=== PATIENT | male | born 1960 | race African-American/Black ===

== ENCOUNTER 2019-05-11 23:14 | Emergency (ER) | payer OTHER ==
[~2019-05-11] VITALS: Ht 182.9 cm; Wt 108.9 kg
[2019-05-11] MEDS: ONDANSETRON 4 MG TAB.RAPDIS SL ONE (22:35)
[2019-05-11] MEDS ORDERED: DEXAMETHASONE SOD PHOSPHATE 10 MG/ML VIAL ONE (23:30)
[2019-05-11] MEDS ORDERED: ONDANSETRON 4 MG TAB.RAPDIS ONE (23:30)
[2019-05-11] MEDS ORDERED: DEXAMETHASONE SOD PHOSPHATE 4 MG/ML VIAL IM ONE (23:30)
[2019-05-11] MEDS ORDERED: ALBUTEROL FS 2.5 MG/0.5 ML VIAL.NEB ONE (23:32)
[2019-05-11] MEDS ORDERED: predniSONE 20 MG TABLET ONE (23:32)
[2019-05-11] MEDS: predniSONE 50 MG TABLET PO ONE (23:35)
[2019-05-11] MEDS: ALBUTEROL FS 2.5 MG/0.5 ML VIAL.NEB NEB ONE (23:39)
--- NOTE | 2019-05-11 23:39 | NUR ---
PT REC'D MEDICATION ORDERED. PT REC'D A BREATHING TX.
[2019-05-12 00:09] VITALS: BP 127/96
--- NOTE | 2019-05-12 00:10 | NUR ---
Patient discharged to home in stable condition. Written and verbal after care instructions given. Patient verbalizes understanding of instruction AND RX. PT AMBULATED OUT WITH A STEADY GAIT. VSS. RESP ARE EVEN AND UNLABORED. NAD NOTED.
== END 2019-05-12 00:11 | disposition home or self-care (01) ==
LOC: ER 23:16
DX: J45.909 Unspecified asthma, uncomplicated (principal)
CPT/HCPCS: 94640; 99283; J7512; Q0162; J1100

== ENCOUNTER 2020-01-05 07:27 | Inpatient (IN) | payer OTHER ==
[~2020-01-05] VITALS: Ht 182.9 cm; Wt 108.9 kg
--- NOTE | 2020-01-05 07:35 | NUR ---
RN NOTE THE PATIENT IS RECEIVED ON A GURNEY. THE PATIENT IS A DIRECT ADMIT FROM [place]. PATIENT IS ALERT AND ORIENTED X4. DENIES SOB. IN ROOM AIR. RESPIRATION REGULAR AND UNLABORED. DENIES PAIN. THE PATIENT IS IN NO APPARENT DISTRESS. LFA G 20 PATENT AND SALINE LOCKED. ORIENTATION TO THE ROOM/UNIT IS PROVIDED AND THE PATIENT VERBALIZED UNDERSTANDING. BED LOW AND LOCKED. SIDE RAILS UP X2. CALL LIGHT WITHIN REACH. WILL CONTINUE TO MONITOR.
--- NOTE | 2020-01-05 08:10 | NUR ---
RN NOTE GENERAL MERCHANDISE SALESPERSON FLORECITA IS MADE AWARE OF PATIENT`S ARRIVAL AND ASKED FOR ADMITTING ORDER. NO ORDERS AT THIS TIME. STILL WAITING. WILL CONTINUE TO FOLLOW UP.
[2020-01-05 08:13] VITALS: BP 137/82
--- NOTE | 2020-01-05 08:53 | NUR ---
MS/RN NOTE THE PATIENT REFUSES SLEEVES FOR DVT PUMP TO BE APPLIED DESPITE EXPLAINING RISKS AND BENEFITS. WILL OFFER AGAIN.
[2020-01-05] MEDS ORDERED: ACETAMINOPHEN 325 MG TABLET PO PRN ×2 (09:00)
[2020-01-05] MEDS ORDERED: ZOLPIDEM TARTRATE 5 MG TABLET PO PRN (09:00)
[2020-01-05] MEDS ORDERED: IPRATROPIUM NEB FS 0.5 MG/2.5 ML AMPUL.NEB NEB PRN (09:00)
[2020-01-05] MEDS ORDERED: ALBUTEROL FS 2.5 MG/0.5 ML VIAL.NEB NEB PRN (09:00)
[2020-01-05] MEDS ORDERED: ONDANSETRON HCL/PF 4 MG/2 ML VIAL IVP PRN ×2 (09:00)
[2020-01-05] MEDS ORDERED: Z GUARD REMEDY 2 OZ OINT TP PRN (09:00)
[2020-01-05] MEDS ORDERED: MAG HYDROX/AL HYDROX/SIMETH 30 ML UDC PO PRN (09:00)
[2020-01-05] MEDS ORDERED: MAGNESIUM HYDROXIDE 30 ML UDC PO PRN (09:00)
[2020-01-05] MEDS ORDERED: HYDROCODONE/APAP 5/325MG 1 EACH TABLET PO PRN (09:00)
[2020-01-05] MEDS ORDERED: methylPREDNISolone SOD SUCC 40 MG/ML VIAL IV SCH (09:00)
[2020-01-05] MEDS: methylPREDNISolone SOD SUCC 125 MG/2ML VIAL IV SCH ×2 (10:29→16:38)
[2020-01-05] MEDS: IPRATROPIUM NEB FS 0.5 MG/2.5 ML AMPUL.NEB NEB SCH ×4 (11:30→23:28)
[2020-01-05] MEDS: ALBUTEROL FS 2.5 MG/0.5 ML VIAL.NEB NEB SCH ×4 (11:30→23:28)
[2020-01-05] MEDS ORDERED: ALBUTEROL FS 2.5 MG/0.5 ML VIAL.NEB NEB SCH (13:30)
[2020-01-05 16:15] VITALS: BP 141/75
--- NOTE | 2020-01-05 19:00 | NUR ---
MS/RN NOTE THE PATIENT IS ALERT AND ORIENTED X4. DENIES PAIN. PATIENT IS IN ROOM AIR AND OXYGEN SATURATION IS AT 97%. DENIES SOB. RESPIRATION REGULAR AND UNLABORED. THE PATIENT IN NO APPARENT DISTRESS. LFA G 20 PATENT AND SALINE LOCKED. BED LOW AND LOCKED. SIDE RAILS UP X20 CALL LIGHT WITHIN REACH. WILL ENDORSE TO JAIL KEEPER.
[2020-01-05] MEDS ORDERED: ALBU18HF2 IH (19:16)
[2020-01-05] MEDS ORDERED: PRED2.5T PO (19:16)
--- NOTE | 2020-01-05 19:32 | NUR ---
MS RN RECEIVE PT IN BED A/O X 3, STABLE CONDITION AND NOT IN DISTRESS, SAFETY MEASURES IN PLACE, WILL CONT TO MONITOR
[2020-01-05 20:00] VITALS: BP 141/78
--- NOTE | 2020-01-05 21:30 | NUR ---
PAGED AND REPORTED RECENT LACTIC ACID TO ACCOUNT EXECUTIVE SALES REPRESENTATIVE RIKI NO NEW ORDERS
[2020-01-05 22:28] LABS: BILIRUBIN,DIRECT 0.1 mg/dL (0.0-0.2); BILIRUBIN,TOTAL 0.4 mg/dL (0.2-1.0); CREATININE 1.2 mg/dL (0.6-1.3)
[2020-01-06] MEDS: IPRATROPIUM NEB FS 0.5 MG/2.5 ML AMPUL.NEB NEB SCH ×4 (03:18→15:16)
[2020-01-06] MEDS: ALBUTEROL FS 2.5 MG/0.5 ML VIAL.NEB NEB SCH ×4 (03:18→15:16)
--- NOTE | 2020-01-06 05:22 | NUR ---
MS RN PT SLEPT WELL, MONITORED FOR PAIN, KEPT CLEAN, DRY AND COMFORT AT ALL TIMES. ALL NEEDS ATTENDED AND ANTICIPATED, NURSING CARE RENDERED, SAFETY MEASURES AT ALL TIMES. WILL ENDORSE TO NEXT SHIFT
--- NOTE | 2020-01-06 05:24 | NUR ---
CALLED LAB TO FF UP IF PT HAS THE SPECIMEN MRSA SWAB PER CRIS HE HAS THE SPECIMEN HE JUST NEED ORDERS
[2020-01-06 07:25] LABS: BASOPHILS % (AUTO) 0.4 % (0.0-2.0); EOSINOPHILS % (AUTO) 1.9 % (0.0-6.0); HEMATOCRIT 44 % (39-51); LYMPHOCYTES # (AUTO) 2.3 /CMM (0.8-4.8); LYMPHOCYTES % (AUTO) 28.9 % (20.0-44.0); MEAN CORPUSCULAR HGB CONC 32 g/dl (31.0-36.0); MEAN CORPUSCULAR VOLUME 89 fL (80-96); MONOCYTES # (AUTO) 0.6 /CMM (0.1-1.30); MONOCYTES % (AUTO) 7.9 % (2.0-12.0); NEUTROPHILS # (AUTO) 4.9 /CMM (1.8-8.9); NEUTROPHILS % (AUTO) 60.9 % (43.0-81.0); PLATELET COUNT (AUTO) 301 /CMM (150-450); RED BLOOD CELL COUNT(AUTO) 4.88 MIL/uL (4.5-6.0)
--- NOTE | 2020-01-06 07:40 | NUR ---
MS RN RECEIVED ON BED, AWAKE,ALERT,ORIENTED X4,NOT IN ANY FORM OF DISTRESS, RESPIRATIONS EVEN AND UNLABORED,NO SOB NOTED, WILL MONITOR PATIENT'S CONDITION.
[2020-01-06 07:42] LABS: ALBUMIN 3.9 g/dL (3.4-5.0); BILIRUBIN,TOTAL 0.4 mg/dL (0.2-1.0); CALCIUM, SERUM 9.1 mg/dL (8.5-10.1); CREATININE 1.1 mg/dL (0.6-1.3); PHOSPHORUS 4.2 mg/dL (2.5-4.9); TOTAL PROTEIN, SERUM 7.5 g/dL (6.4-8.2)
[2020-01-06 08:15] VITALS: BP 132/81
--- NOTE | 2020-01-06 09:00 | NUR ---
MS JENNINGS BREAKFAST SERVED,DUE MEDS GIVEN,TOLERATED WELL.
[2020-01-06] MEDS: methylPREDNISolone SOD SUCC 125 MG/2ML VIAL IV SCH (09:22)
[2020-01-06] MEDS ORDERED: METH4TAB17 PO (11:14)
[2020-01-06] MEDS ORDERED: PSEU30CA2 PO (11:17)
[2020-01-06] MEDS ORDERED: methylPREDNISolone SOD SUCC 40 MG/ML VIAL IV SCH (11:21)
--- NOTE | 2020-01-06 11:30 | NUR ---
MS RN WAS SEEN BY DAIN BERNABE W/ ORDER TO GO HOME TODAY.
--- NOTE | 2020-01-06 15:30 | NUR ---
ms wood patternmaker instructions given and understood, patient went home w/ prescription.
== END 2020-01-06 15:51 | disposition home or self-care (01) | DRG 141 ==
LOC: MED 07:27
PROVIDERS: ADMIT Nurse Practitioner Acute Care; ATTEND Nurse Practitioner Acute Care
DX: J45.901 Unspecified asthma with (acute) exacerbation (principal); E87.2 Acidosis; Z79.52 Long term (current) use of systemic steroids; Z98.890 Other specified postprocedural states; R09.02 Hypoxemia
CPT/HCPCS: 36415; 71045-TC; 80053-TC; 80061-TC; 82247-TC; 82248-TC; 82565-TC; 83605-TC; 83735-TC; 84100-TC; 85025-TC; 87081-TC; 94799-TC; G0378; J2405; J2930

== ENCOUNTER 2020-01-18 17:01 | Emergency (ER) | payer OTHER ==
[~2020-01-18] VITALS: Ht 182.9 cm; Wt 113.4 kg
[~2020-01-18 17:01] MED LIST: ALBU18HF2 IH; METH4TAB17 PO; PSEU30CA2 PO
[2020-01-18] MEDS: ALBUTEROL SULFATE INH 18 GM HFA.AER.AD IH ONE (17:30)
--- NOTE | 2020-01-18 17:30 | NUR ---
BIBS FROM WORK TO ER BED 6. AAOX4. NOT IN RESP DISTRESS, BREATHING EVEN AND UNLABORED.AMBULATORY. CAME IN FOR ASTHMA EXCAREBATION. PER PT, HE HAS BEEN FEELING SOB FOR THE PAST FEW DAYS AND RAN OUT OF HIS INHALER. TOÑA MCKEON WAS AT THE BED SIDE FOR EVAL. ORDERS RECEIVED NOPTED AND CARRIED OUT.
--- NOTE | 2020-01-18 17:33 | NUR ---
PHARMACY UNABLE TO DISPENSE ALBUTEROL INHALER D/T PT IS NOT A COVID CASE. TOÑA MCKEON WAS MADE AWARE
[2020-01-18] MEDS ORDERED: predniSONE 20 MG TABLET ONE (17:34)
[2020-01-18] MEDS: predniSONE 20 MG TABLET PO ONE (17:37)
[2020-01-18] MEDS: IPRATROPIUM NEB FS 0.5 MG/2.5 ML AMPUL.NEB NEB ONE (17:38)
[2020-01-18] MEDS: ALBUTEROL FS 2.5 MG/3 ML VIAL.NEB CONTNEB ONE (17:38)
[2020-01-18] MEDS ORDERED: IPRATROPIUM NEB FS 0.5 MG/2.5 ML AMPUL.NEB ONE (17:50)
[2020-01-18] MEDS ORDERED: ALBUTEROL FS 2.5 MG/3 ML VIAL.NEB ONE (17:50)
--- NOTE | 2020-01-18 17:50 | NUR ---
RT PATIENT PLACED ON CONT TX. WILL ENDORSE TO MATCH MARKER TO REMOVE TX WHEN DONE AND CHART POST INTERVENTIONS.
--- NOTE | 2020-01-18 19:41 | NUR ---
Patient discharged to home in stable condition. Written and verbal after care instructions given. Patient verbalizes understanding of instruction. Pt ambulatory with a steady gait
[2020-01-18 19:42] VITALS: BP 153/75
== END 2020-01-18 19:42 | disposition home or self-care (01) ==
LOC: ER 17:04
DX: J45.901 Unspecified asthma with (acute) exacerbation (principal); Z76.0 Encounter for issue of repeat prescription; Z60.2 Problems related to living alone; Z79.899 Other long term (current) drug therapy
CPT/HCPCS: 94644; 99285; J7512

== ENCOUNTER 2020-01-22 12:40 | Emergency (ER) | payer OTHER ==
[~2020-01-22] VITALS: Ht 182.9 cm; Wt 108.9 kg
[~2020-01-22 12:40] MED LIST changes: -METH4TAB17 PO
--- NOTE | 2020-01-22 12:48 | NUR ---
JESSENIA FROM HOME TO ER BED 12. AAOX4. NOT IN RESP DISTRESS, BREATHING EVEN AND UNLABORED. AMBULATORY. CAME IN FOR GEN WEAKNESS FOR THE PAST 2 DAYS. PER PT, HE WAS ON PREDNISONE TX, COMPLETED THE THE WEAKNESS STARTED. PT REPORTS, NAUSEA. NO NEURO DEFICIT. MD WAS AT THE BEDSIDE FOR EVAL. AWAITING FOR ORDERS
[2020-01-22] MEDS ORDERED: methylPREDNISolone SOD SUCC 125 MG/2ML VIAL ONE (12:52)
[2020-01-22] MEDS ORDERED: ONDANSETRON HCL/PF 4 MG/2 ML VIAL ONE ×2 (12:52→13:43)
[2020-01-22] MEDS ORDERED: methylPREDNISolone SOD SUCC 125 MG/2ML VIAL IV ONE (13:00)
[2020-01-22] MEDS ORDERED: IV NS 0.9% 500 ML BAG IV ONE (13:00)
[2020-01-22] MEDS ORDERED: ONDANSETRON HCL/PF 4 MG/2 ML VIAL IV ONE ×2 (13:00→14:00)
--- NOTE | 2020-01-22 13:09 | NUR ---
SUMMER ANALYST AND EMT AT BEDSIDE FOR BLOOD DRAWN AND EKG
[2020-01-22 13:20] LABS: BASOPHILS % (AUTO) 0.5 % (0.0-2.0); EOSINOPHILS % (AUTO) 0.2 % (0.0-6.0); HEMATOCRIT 46 % (39-51); HEMOGLOBIN 15.3 g/dL (13.5-17.5); LYMPHOCYTES # (AUTO) 1.3 /CMM (0.8-4.8); LYMPHOCYTES % (AUTO) 15.6 % (20.0-44.0); MEAN CORPUSCULAR HGB CONC 33 g/dl (31.0-36.0); MEAN CORPUSCULAR VOLUME 89 fL (80-96); MONOCYTES # (AUTO) 0.7 /CMM (0.1-1.30); MONOCYTES % (AUTO) 8.4 % (2.0-12.0); NEUTROPHILS # (AUTO) 6.3 /CMM (1.8-8.9); NEUTROPHILS % (AUTO) 75.3 % (43.0-81.0); PLATELET COUNT (AUTO) 331 /CMM (150-450); WHITE BLOOD COUNT (AUTO) 8.4 K/uL (4.3-11.0)
[2020-01-22 13:32] LABS: ALANINE AMINOTRANSFERASE 48 U/L (12-78); ALBUMIN 4.2 g/dL (3.4-5.0); ALKALINE PHOSPHATASE 84 U/L (46-116); ASPARTATE AMINOTRANSFERASE 31 U/L (15-37); BILIRUBIN,DIRECT 0.1 mg/dL (0.0-0.2); BILIRUBIN,TOTAL 0.7 mg/dL (0.2-1.0); CALCIUM, SERUM 9.2 mg/dL (8.5-10.1); CARBON DIOXIDE 30 mmol/L (21-32); CHLORIDE 99 mmol/L (98-107); CREATININE 1.2 mg/dL (0.6-1.3); GLUCOSE 101 mg/dL (74-106); LIPASE 692 U/L (73-393); POTASSIUM 3.9 mmol/L (3.5-5.1); SODIUM SERUM 136 mmol/L (136-145); TOTAL PROTEIN, SERUM 8.2 g/dL (6.4-8.2); UREA NITROGEN, BLOOD 14 mg/dL (7-18)
--- NOTE | 2020-01-22 14:15 | NUR ---
Patient discharged to home in stable condition. Written and verbal after care instructions given. Patient verbalizes understanding of instruction.IV removed. Catheter intact and site benign. Pressure and 4x4 applied to site. No bleeding noted. Pt ambulatory with a steady gait
[2020-01-22 14:16] VITALS: BP 153/89
== END 2020-01-22 15:20 | disposition home or self-care (01) ==
LOC: ER 12:43
DX: R11.2 Nausea with vomiting, unspecified (principal); J45.909 Unspecified asthma, uncomplicated; Z60.2 Problems related to living alone; Z79.899 Other long term (current) drug therapy
CPT/HCPCS: 36415; 80048; 80076; 83690; 84484; 85025; 93005; 96374; 96375; 96376; 99284; J2405 ×2; J2930; J7040; J7030

== ENCOUNTER 2020-03-31 16:20 | Emergency (ER) | payer OTHER ==
[~2020-03-31] VITALS: Ht 182.9 cm; Wt 106.6 kg
--- NOTE | 2020-03-31 17:01 | NUR ---
CAME IN W C/O "CHEST TIGHTNESS/ASTHMA" RAN OUT OF INHALER, TO ER BED 2, HOOKED TO MONITOR, CHANGED TO HOSP GOWN, WARM BLANKET PROVIDED, PATIENT AAO x 4, BREATHING EVEN AND UNLABORED, AWAITING MD [employer].
--- NOTE | 2020-03-31 17:06 | NUR ---
TOÑA GARRISON AT BEDSIDE
[2020-03-31] MEDS ORDERED: predniSONE 20 MG TABLET ONE (17:29)
[2020-03-31] MEDS: predniSONE 20 MG TABLET PO ONE (17:32)
[2020-03-31] MEDS ORDERED: ALBUTEROL FS 2.5 MG/3 ML VIAL.NEB ONE (17:37)
[2020-03-31] MEDS ORDERED: IPRATROPIUM NEB FS 0.5 MG/2.5 ML AMPUL.NEB ONE (17:37)
[2020-03-31] MEDS: IPRATROPIUM NEB FS 0.5 MG/2.5 ML AMPUL.NEB NEB ONE (17:39)
[2020-03-31] MEDS: ALBUTEROL FS 2.5 MG/3 ML VIAL.NEB NEB ONE (17:39)
[2020-03-31 18:32] VITALS: BP 142/76
[2020-03-31] MEDS: ALBUTEROL SULFATE 8 GM HFA.AER.AD IH ONE (18:32)
--- NOTE | 2020-03-31 18:32 | NUR ---
Patient discharged to home in stable condition. Written and verbal after care instructions given. Patient verbalizes understanding of instruction.
== END 2020-03-31 18:33 | disposition home or self-care (01) ==
LOC: ER 16:26
DX: J45.901 Unspecified asthma with (acute) exacerbation (principal); Z76.0 Encounter for issue of repeat prescription; Z60.2 Problems related to living alone; Z79.899 Other long term (current) drug therapy
CPT/HCPCS: 94640; 99283; J7512

== ENCOUNTER 2020-04-10 18:11 | Emergency (ER) | payer OTHER ==
[~2020-04-10] VITALS: Ht 182.9 cm; Wt 104.3 kg
[2020-04-10 18:21] VITALS: BP 152/73
[2020-04-10] MEDS ORDERED: IPRATROPIUM NEB FS 0.5 MG/2.5 ML AMPUL.NEB ONE (18:29)
[2020-04-10] MEDS ORDERED: ALBUTEROL FS 2.5 MG/3 ML VIAL.NEB ONE (18:29)
[2020-04-10] MEDS ORDERED: ALBUTEROL FS 2.5 MG/3 ML VIAL.NEB NEB ONE (18:30)
[2020-04-10] MEDS ORDERED: IPRATROPIUM NEB FS 0.5 MG/2.5 ML AMPUL.NEB NEB ONE (18:30)
[2020-04-10] MEDS ORDERED: predniSONE 20 MG TABLET PO ONE (18:30)
--- NOTE | 2020-04-10 18:30 | NUR ---
CALLED RT FOR BREATHING TX
[2020-04-10] MEDS ORDERED: predniSONE 20 MG TABLET ONE (18:31)
--- NOTE | 2020-04-10 18:34 | NUR ---
BRATHING TX IN PROGRESS
--- NOTE | 2020-04-10 18:35 | NUR ---
RADIOLOGY AT BEDSIDE FOR XRAY
--- NOTE | 2020-04-10 19:23 | NUR ---
Patient discharged to home in stable condition. Written and verbal after care instructions given. Patient verbalizes understanding of instruction.
== END 2020-04-10 19:52 | disposition home or self-care (01) ==
LOC: ER 18:12
DX: J45.909 Unspecified asthma, uncomplicated (principal); Z60.2 Problems related to living alone; Z79.899 Other long term (current) drug therapy
CPT/HCPCS: 71045; 94640; 99283; J7512

== ENCOUNTER 2020-05-08 18:43 | Emergency (ER) | payer OTHER ==
[~2020-05-08] VITALS: Ht 182.9 cm; Wt 99.8 kg
--- NOTE | 2020-05-08 19:31 | NUR ---
BIBSELF C/O ASTHMA X 3 DAYS, NO RELIEF WITH ALBUTEROL. REQUEST FOR BREATHING TX & PREDNISONE. PT AAOX4, VSS. DENIES CP, DIZZINESS, N/V AT THIS TIME. AWAITING EVAL BY CECIL/PA & WILL CONT TO MONITOR.
--- NOTE | 2020-05-08 19:40 | NUR ---
DR. JO @ BS FOR EVAL.
[2020-05-08] MEDS ORDERED: ALBUTEROL FS 2.5 MG/3 ML VIAL.NEB NEB ONE (20:00)
[2020-05-08] MEDS ORDERED: predniSONE 20 MG TABLET PO ONE (20:00)
[2020-05-08] MEDS ORDERED: predniSONE 20 MG TABLET ONE (20:03)
--- NOTE | 2020-05-08 20:10 | NUR ---
MEDICATED PER ERMD ORDER, PT SILVANA WELL. PT GETTING BREATHING TX, PT SILVANA WELL & WILL CONT TO MONITOR.
[2020-05-08] MEDS ORDERED: ALBUTEROL FS 2.5 MG/3 ML VIAL.NEB ONE (20:11)
[2020-05-08] MEDS ORDERED: CLONIDINE HCL 0.1 MG TABLET PO ONE (20:30)
--- NOTE | 2020-05-08 21:50 | NUR ---
Patient discharged to home in stable condition. Written and verbal after care instructions given. Patient verbalizes understanding of instruction and rx. Pt ambulated out of E.D. vss.
--- NOTE | 2020-05-08 21:50 | NUR ---
PT BREATHING TREATMENT FINISHED, RR EVEN AND UNLABORED. VSS.
[2020-05-08 21:51] VITALS: BP 138/68
== END 2020-05-08 21:51 | disposition home or self-care (01) ==
LOC: ER 18:49
DX: J45.909 Unspecified asthma, uncomplicated (principal); Z60.2 Problems related to living alone; Z79.899 Other long term (current) drug therapy
CPT/HCPCS: 93005; 94644; 99285; J7512

== ENCOUNTER 2020-05-27 08:55 | Emergency (ER) | payer OTHER ==
[~2020-05-27] VITALS: Ht 182.9 cm; Wt 108.9 kg
--- NOTE | 2020-05-27 09:00 | NUR ---
SEEN AND EXAMINED BY
[2020-05-27 09:02] VITALS: BP 124/81
--- NOTE | 2020-05-27 09:21 | NUR ---
Patient eloped from facility. ER MD notified.
== END 2020-05-27 09:25 | disposition left against medical advice (07) ==
LOC: ER 08:58
DX: J45.909 Unspecified asthma, uncomplicated (principal); Z79.899 Other long term (current) drug therapy

== ENCOUNTER 2021-11-17 15:06 | Emergency (ER) | payer OTHER ==
[~2021-11-17] VITALS: Ht 182.9 cm; Wt 114.3 kg
[2021-11-17 15:06] VITALS: BP 136/78
[2021-11-17] MEDS ORDERED: predniSONE 20 MG TABLET PO ONE ×2 (16:00)
[2021-11-17] MEDS ORDERED: IPRATROPIUM NEB FS 0.5 MG/2.5 ML AMPUL.NEB NEB ONE (16:00)
[2021-11-17] MEDS ORDERED: ALBUTEROL FS 2.5 MG/3 ML VIAL.NEB NEB ONE (16:00)
[2021-11-17] MEDS ORDERED: IPRATROPIUM NEB FS 0.5 MG/2.5 ML AMPUL.NEB ONE (16:13)
[2021-11-17] MEDS ORDERED: ALBUTEROL FS 2.5 MG/3 ML VIAL.NEB ONE (16:13)
[2021-11-17] MEDS ORDERED: predniSONE 20 MG TABLET ONE (16:15)
--- NOTE | 2021-11-17 16:24 | NUR ---
RAPID AND PCR COVID SWAB DONE AND SENT TO LAB
[2021-11-17] MEDS ORDERED: PRED20TA PO (19:12)
--- NOTE | 2021-11-17 19:18 | NUR ---
Patient discharged to home in stable condition. Written and verbal after care instructions given. Patient verbalizes understanding of instruction.
== END 2021-11-17 19:19 | disposition home or self-care (01) ==
LOC: ER 15:15
DX: R06.00 Dyspnea, unspecified (principal); J06.9 Acute upper respiratory infection, unspecified; J45.909 Unspecified asthma, uncomplicated; Z20.822 Contact with and (suspected) exposure to COVID-19; Z59.00 Homelessness unspecified
CPT/HCPCS: 71045; 87426; 94640; 94799; 99284; C9803 ×2; J7512; U0003

== ENCOUNTER 2022-10-03 12:57 | Emergency (ER) | payer OTHER ==
[~2022-10-03] VITALS: Ht 182.9 cm; Wt 108.9 kg
[~2022-10-03 12:57] MED LIST changes: +PRED20TA PO
[2022-10-03 13:12] VITALS: BP 124/64
--- NOTE | 2022-10-03 13:20 | NUR ---
PT 62 YRS MALE FROM HOME C/O PAIN AND SWALLEN ON RT BIG TOE SEEN BY DR. MA
[2022-10-03] MEDS ORDERED: predniSONE 20 MG TABLET ONE (13:27)
[2022-10-03] MEDS ORDERED: predniSONE 20 MG TABLET PO ONE (13:30)
[2022-10-03] MEDS ORDERED: PRED20TA PO (13:40)
--- NOTE | 2022-10-03 13:42 | NUR ---
SEEN BY DOC
== END 2022-10-03 14:35 | disposition home or self-care (01) ==
LOC: ER 13:01
DX: M10.9 Gout, unspecified (principal); J45.909 Unspecified asthma, uncomplicated; F41.9 Anxiety disorder, unspecified; Z60.2 Problems related to living alone
CPT/HCPCS: 99283; J7512

== ENCOUNTER 2023-08-21 20:12 | Emergency (ER) | payer OTHER ==
[~2023-08-21] VITALS: Ht 182.9 cm; Wt 104.3 kg
[2023-08-21 20:18] VITALS: BP 131/77; TEMP 98
[2023-08-21] MEDS ORDERED: PRED50TA PO (21:07)
[2023-08-21 21:16] VITALS: O2SAT 98
== END 2023-08-21 21:16 | disposition home or self-care (01) ==
LOC: ER 20:14
DX: J45.909 Unspecified asthma, uncomplicated (principal); F41.9 Anxiety disorder, unspecified; Z60.2 Problems related to living alone

== ENCOUNTER 2023-10-14 18:36 | Emergency (ER) | payer OTHER ==
[~2023-10-14] VITALS: Ht 182.9 cm; Wt 99.8 kg
[~2023-10-14 18:36] MED LIST changes: +PRED50TA PO
[2023-10-14 19:00] VITALS: TEMP 98.1
[2023-10-14] MEDS ORDERED: ALBU18HF2 INH (19:57)
[2023-10-14] MEDS ORDERED: AMOX-430 PO (19:57)
[2023-10-14 20:10] VITALS: BP 138/81; O2SAT 98
== END 2023-10-14 20:10 | disposition home or self-care (01) ==
LOC: ER 18:41
DX: R09.81 Nasal congestion (principal); R05.9 Cough, unspecified; J45.909 Unspecified asthma, uncomplicated; Z60.2 Problems related to living alone; Z79.899 Other long term (current) drug therapy; Z20.822 Contact with and (suspected) exposure to COVID-19
CPT/HCPCS: 71045-TC

== ENCOUNTER 2024-03-29 17:30 | Emergency (ER) | payer OTHER ==
[~2024-03-29] VITALS: Ht 190.5 cm; Wt 104.3 kg
[~2024-03-29 17:30] MED LIST changes: +ALBU18HF2 INH; +AMOX-430 PO
[2024-03-29 17:43] VITALS: BP 126/90; TEMP 98.3; O2SAT 96
[2024-03-29] MEDS ORDERED: ALBU18HF2 INH (17:55)
== END 2024-03-29 18:05 | disposition home or self-care (01) ==
LOC: ER 17:36
DX: J45.909 Unspecified asthma, uncomplicated (principal); Z60.2 Problems related to living alone; Z76.0 Encounter for issue of repeat prescription

== ENCOUNTER 2024-05-10 06:21 | Emergency (ER) | payer OTHER ==
[~2024-05-10] VITALS: Ht 182.9 cm; Wt 93.0 kg
[2024-05-10 06:43] VITALS: BP 133/69; TEMP 98.2; O2SAT 98
[2024-05-10] MEDS ORDERED: ALBU18HF2 INH (06:53)
[2024-05-10] MEDS ORDERED: PRED20TA PO (06:53)
== END 2024-05-10 06:58 | disposition home or self-care (01) ==
LOC: ER 06:27
DX: J45.909 Unspecified asthma, uncomplicated (principal); Z76.0 Encounter for issue of repeat prescription; Z79.52 Long term (current) use of systemic steroids; Z60.2 Problems related to living alone

== ENCOUNTER 2024-06-09 20:18 | Emergency (ER) | payer OTHER ==
[~2024-06-09] VITALS: Ht 188 cm; Wt 99.8 kg
[2024-06-09 20:38] VITALS: BP 124/76; TEMP 98.1
[2024-06-09] MEDS ORDERED: predniSONE 20 MG TABLET ONE (20:49)
[2024-06-09] MEDS: predniSONE 20 MG TABLET PO ONE (20:50)
[2024-06-09] MEDS ORDERED: ALBUTEROL FS 2.5 MG/3 ML VIAL.NEB ONE (20:59)
[2024-06-09] MEDS ORDERED: IPRATROPIUM NEB FS 0.5 MG/2.5 ML AMPUL.NEB ONE (20:59)
[2024-06-09 21:05] VITALS: O2SAT 99
[2024-06-09] MEDS: IPRATROPIUM NEB FS 0.5 MG/2.5 ML AMPUL.NEB NEB ONE (21:05)
[2024-06-09] MEDS: ALBUTEROL FS 2.5 MG/3 ML VIAL.NEB NEB ONE (21:05)
== END 2024-06-09 21:41 | disposition home or self-care (01) ==
LOC: ER 20:21
DX: J45.901 Unspecified asthma with (acute) exacerbation (principal); Z79.52 Long term (current) use of systemic steroids
CPT/HCPCS: 99283; 94640; J7512